=== PATIENT | female | born 1950 | race Caucasian/White ===

== ENCOUNTER 2019-01-26 09:23 | Day surgery (SDC) ==
[2019-01-20 09:47] LABS: URINE SOURCE CLEAN CATCH
[2019-01-20 09:55] LABS: BASO# 0.01 X1000 (0.0-0.2); BASO% 0.2 % (0.0-0.8); EOS# 0.19 X1000 (0.0-0.7); EOS% 3.1 % (0.0-10.0); HEMATOCRIT 40.3 % (37.0-47.0); HEMOGLOBIN 12.8 g/dL (12.0-16.0); LYMPH# 2.14 X1000 (1.2-3.4); LYMPH% 34.7 % (20.5-51.1); MCH 29.6 PG (27-31); MCHC 31.8 g/dL (33-37); MCV 93.1 FL (81-99); MONO# 0.25 X1000 (0.11-0.59); MONO% 4.1 % (1.7-9.3); MPV 9.5 FL (7.4-10.4); NEUT# 3.57 X1000 (1.4-6.5); NEUT% 57.9 % (42.2-75.2); PLT 240 X1000 (130-400); RBC 4.33 XMIL (4.2-5.4); RDW 14.4 % (11.5-14.5); WBC 6.16 X1000 (4.8-10.8)
[2019-01-20 09:56] LABS: BILIRUBIN URINE NEGATIVE (NEGATIVE); BLOOD URINE TRACE (NEGATIVE); COLOR YELLOW; GLUCOSE URINE NEGATIVE (NEGATIVE); KETONE URINE NEGATIVE (NEGATIVE); LEUKOCYTES URINE NEGATIVE (NEGATIVE); NITRITE URINE NEGATIVE (NEGATIVE); PH URINE 6.5; PROTEIN URINE NEGATIVE (NEGATIVE); SP GRAVITY URINE 1.022; TURBIDITY URINE CLEAR (CLEAR); UR EPITHELIAL CELLS <10 /HPF (<10); URINE BACTERIA NEGATIVE /HPF; URINE RBC <10 /HPF (<10); URINE WBC <10 /HPF (<10); UROBILINOGEN URINE NORMAL (NORMAL)
[2019-01-20 10:04] LABS: HEMOGLOBIN A1C 5.4 % (4.8-6.0)
[2019-01-20 10:17] LABS: INR 1.37; PROTIME 17.1 Seconds (11.0-16.0)
[2019-01-20 10:18] LABS: PTT 35.5 Seconds (22.3-41.8)
[2019-01-20 10:19] LABS: AGAP 10; BUN 19 mg/dL (8-22); CALCIUM 8.9 mg/dL (8.8-10.2); CHLORIDE 108 mmol/L (98-107); COSMO 292; CREATININE 0.6 mg/dL (0.5-0.9); ESTIMATED GFR > 60; GLUCOSE 87 mg/dL (70-104); POTASSIUM 4.6 mmol/L (3.5-5.1); SODIUM 146 mmol/L (136-145); TCO2 28 mmol/L (25-35)
[2019-01-26] MEDS ORDERED: REGLAN ONE (09:48)
[2019-01-26] MEDS ORDERED: PEPCID ONE (09:48)
[2019-01-26] MEDS ORDERED: COLACE ONE (09:48)
[2019-01-26] MEDS ORDERED: LYRICA ONE (09:49)
[2019-01-26] MEDS ORDERED: LR 1,000 ML ONE (09:49)
[2019-01-26] MEDS ORDERED: CELEBREX ONE (09:49)
[2019-01-26] MEDS ORDERED: KEFZOL 1 GM/D5W 1 GM/50 ML IVPB ONE (09:49)
[2019-01-26] MEDS ORDERED: VERSED ONE (09:51)
[2019-01-26] MEDS ORDERED: DIPRIVAN 1% ONE ×3 (09:52→12:59)
[2019-01-26] MEDS ORDERED: FENTANYL ONE (09:52)
[2019-01-26] MEDS ORDERED: DURAMORPH ONE (11:01)
[2019-01-26] MEDS ORDERED: TORADOL ONE (11:01)
[2019-01-26] MEDS ORDERED: MARCAINE 0.25% PF ONE (11:01)
[2019-01-26] MEDS ORDERED: VANCOMYCIN ONE (11:01)
[2019-01-26] MEDS ORDERED: SODIUM CHLORIDE 0.9% ONE (11:02)
[2019-01-26] MEDS ORDERED: EXPAREL 1.3% ONE (11:02)
[2019-01-26] MEDS: CYKLOKAPRON 1,000 MG/NS 2,000 MG/200 ML IVPB ONE ×2 (11:55→12:54)
[2019-01-26] MEDS ORDERED: DECADRON ONE (12:14)
[2019-01-26] MEDS ORDERED: ZOFRAN ONE (12:14)
[2019-01-26] MEDS ORDERED: OFIRMEV 1000 MG/ISOTONIC SOLN 1,000 MG/100 ML BOTTLE ONE (12:14)
[2019-01-26 12:42] LABS: URINE SOURCE CATH
[2019-01-26 12:44] LABS: BILIRUBIN URINE NEGATIVE (NEGATIVE); BLOOD URINE NEGATIVE (NEGATIVE); COLOR YELLOW; GLUCOSE URINE NEGATIVE (NEGATIVE); KETONE URINE NEGATIVE (NEGATIVE); LEUKOCYTES URINE NEGATIVE (NEGATIVE); NITRITE URINE NEGATIVE (NEGATIVE); PROTEIN URINE NEGATIVE (NEGATIVE); SP GRAVITY URINE 1.016; TURBIDITY URINE CLEAR (CLEAR); UR EPITHELIAL CELLS <10 /HPF (<10); URINE BACTERIA NEGATIVE /HPF; URINE RBC <10 /HPF (<10); URINE WBC <10 /HPF (<10); UROBILINOGEN URINE NORMAL (NORMAL)
--- NOTE | 2019-01-26 13:15 | OPERATIVE NOTE ---
PROCEDURE DATE: 01/26/2019 PREOPERATIVE DIAGNOSIS: Degenerative joint disease, left knee. POSTOPERATIVE DIAGNOSIS: Degenerative joint disease, left knee. PROCEDURE PERFORMED: Left total knee replacement. SURGEON: Faisal Nguyen M.D. SEAMAN OFFICER: Vazquez Chow. Mr. Chow was necessary for proper retraction and manipulation during the case. ANESTHESIA: Spinal. COMPLICATIONS: None. PROCEDURE IN DETAIL: A 68-year-old female presents for a left knee replacement. Risks, benefits, and no guarantees were discussed, and she is willing to proceed. She was taken to the operating room, and satisfactory anesthesia obtained. The left knee was prepped and draped in the usual sterile fashion. A time-out was taken to confirm operative site, procedure, and patient. The leg was wrapped with an Esmarch, and tourniquet inflated to 300 mmHg. A midline incision was made, followed by a quad tendon-sparing arthrotomy. The patella was everted and resurfaced with freehand technique. With the patella subluxed laterally, the knee was flexed, and an intramedullary hole made in the distal femur. The distal femoral cutting block was secured in 5 degrees of valgus. Distal femoral resection was made, and the femur sized to a size 5 DePuy Attune implant. The 4-in-1 block was secured, and the anterior, posterior, and chamfer cuts sequentially made. Care was taken to preserve the PCL and collateral ligaments. Any osteophytes were debrided off the femur. With the knee flexed, a PCL retractor was placed behind the tibia to protect the PCL and neurovascular bundle. The tibial cutting block was secured, and the tibial resection made. The tibia was then sized to a size 4 tibial tray. A trial reduction was performed with a size 4 tibial tray, a size 5 cruciate-retaining femoral implant, and a 7 mm thick trial poly with good range of motion and stability. The patella was then sized to a 35 medialized dome patella. The drill holes were placed for the patellar implant and the femoral component. The trial components were removed, and all bony surfaces were thoroughly irrigated with pulsatile lavage. Cement with a gram of vancomycin was then utilized to cement a DePuy Attune size 4 rotating platform tibial base plate, a size 5 narrow cruciate retaining femoral component for a left knee, and a 35 medialized dome patella. While the cement cured, excess cement was removed with a [place] elevator. The joint capsule was injected with Exparel for pain management. A Hemovac drain was placed. After curing the cement, a 7 mm thick cruciate-retaining size 5 polyethylene bearing was secured into the tibial tray, and the knee reduced. Final range of motion was 0 to 130 degrees with midline patellar tracking. The joint was irrigated with irrigant, and closed over the drain with #1 Vicryl in the arthrotomy, 2-0 Vicryl in the subcu, and skin felix on the skin edges. Sterile dressings completed the closure, and the patient was recovered from anesthesia, and transferred to the recovery room in stable condition. No intraoperative complications were noted. Instrument count and sponge count were correct at the time of closure. cc: Kimo Nguyen MD
[2019-01-26] MEDS ORDERED: NS 1,000 ML ONE (14:02)
--- NOTE | 2019-01-26 14:07 | Diag Imaging Result Doc PS360 ---
KNEE 1-2 VIEWS-LEFT - 01/26/2019 INDICATION: post op TECHNIQUE: Two views COMPARISON: None FINDINGS: There has been left total knee arthroplasty. No hardware fracture or loosening. Alignment is anatomic. IMPRESSION: No complication. Electronically signed by William Jiménez 01/26/2019 2:04 PM
[2019-01-26] MEDS ORDERED: ZOFRAN ODT PO PRN (15:00)
[2019-01-26] MEDS ORDERED: ZOFRAN IV PRN (15:00)
[2019-01-26] MEDS ORDERED: MORPHINE IV PRN ×3 (15:00)
[2019-01-26] MEDS ORDERED: OXY IR PO PRN (15:00)
[2019-01-26] MEDS: OXY IR PO PRN (16:17)
[2019-01-26] MEDS: ULTRAM PO SCH ×2 (16:17→22:06)
[2019-01-26] MEDS: NS 1,000 ML IV SCH (16:18)
--- NOTE | 2019-01-26 18:29 | ORTHOPAEDICS PROGRESS NOTE ---
DATE: 01/26/2019 SUBJECTIVE DATA: Ms. Bravo is seen postop day 0 for left total knee arthroplasty. She states she is doing well at this time. She reports that she has been up walking with physical therapy. She denies nausea or vomiting at this time. She states she has a small amount of pain. OBJECTIVE DATA: There is good sensation of lower extremity. There is good pedal pulses. There is negative Homans sign. Bandages are clean and dry. Vital signs have been stable. ASSESSMENT: Degenerative joint disease left knee with left total knee arthroplasty. PLAN: We will plan on checking on Ms. Bravo in the morning. If she is doing well, we may consider discharge at that time. Dictated by TAYLOR Lamb for Kimo Nguyen MD cc: TAYLOR Lamb MD
[2019-01-26] MEDS: KEFZOL 1 GM/D5W 1 GM/50 ML IVPB IV SCH (19:55)
[2019-01-26] MEDS ORDERED: AMBIEN PO SCH (22:03)
[2019-01-26] MEDS: COLACE PO SCH (22:07)
[2019-01-26] MEDS: TYLENOL PO SCH (22:07)
[2019-01-26] MEDS: CELEBREX PO SCH (22:08)
[2019-01-26] MEDS: PERIDEX MT SCH (22:08)
[2019-01-27] MEDS: NS 1,000 ML IV SCH (03:20)
[2019-01-27] MEDS: ULTRAM PO SCH ×2 (03:20→13:02)
[2019-01-27] MEDS: TYLENOL PO SCH ×2 (03:21→13:03)
[2019-01-27] MEDS: KEFZOL 1 GM/D5W 1 GM/50 ML IVPB IV SCH (03:30)
[2019-01-27 06:06] LABS: HEMATOCRIT 34.4 % (37.0-47.0)
[2019-01-27 06:38] LABS: AGAP 12; BUN 9 mg/dL (8-22); CALCIUM 7.8 mg/dL (8.8-10.2); CHLORIDE 106 mmol/L (98-107); COSMO 285; CREATININE 0.5 mg/dL (0.5-0.9); ESTIMATED GFR > 60; GLUCOSE 163 mg/dL (70-104); POTASSIUM 4.8 mmol/L (3.5-5.1); SODIUM 142 mmol/L (136-145); TCO2 24 mmol/L (25-35)
[2019-01-27] MEDS ORDERED: XARELTO PO SCH (09:00)
[2019-01-27] MEDS ORDERED: CARDIZEM CD PO SCH (09:00)
[2019-01-27] MEDS ORDERED: VITAMIN D PO SCH (09:00)
[2019-01-27] MEDS ORDERED: PEPCID PO SCH (09:00)
[2019-01-27] MEDS ORDERED: EVISTA PO SCH (09:00)
[2019-01-27] MEDS ORDERED: LOPRESSOR PO SCH (09:00)
[2019-01-27] MEDS ORDERED: LEXAPRO PO SCH (09:00)
[2019-01-27] MEDS ORDERED: LIPITOR PO SCH (09:00)
[2019-01-27] MEDS: OXY IR PO PRN (10:04)
[2019-01-27 11:27] VITALS: BP 127/64
[2019-01-27] MEDS: PERIDEX MT SCH (12:57)
[2019-01-27] MEDS: CELEBREX PO SCH (12:58)
[2019-01-27] MEDS: COLACE PO SCH (12:58)
--- NOTE | 2019-01-27 13:15 | ORTHOPAEDICS PROGRESS NOTE ---
DATE: 01/27/2019 SUBJECTIVE DATA: Ms. Bravo is seen postop day 1 of her left total knee arthroplasty. She reports her pain is 2/10 at this time. She reports she has been walking with physical therapy without difficulty. She states she does take Xarelto 20 mg daily at home and that she can continue her home medication for deep vein thrombosis prophylaxis. OBJECTIVE DATA: The bandages are clean and dry. There is no active drainage. There is negative Homans sign. There is good sensation to the left lower extremity. There is good pedal pulses. There is good capillary refill in the lower extremities. ASSESSMENT: Degenerative joint disease of the left knee with left total knee arthroplasty. PLAN: We plan on sending Ms. Bravo home today. She can continue her Xarelto as directed. I placed her on Bactrim DS b.i.d. for 10 days for infection prevention. I have written her prescription for physical therapy. She would like to attend outpatient therapy right away. I have also given her [place] 10 for pain. She is to follow up in office in roughly 10 days for a checkup. We will go and get her discharged after she walks with therapy. She is to call with any questions or concerns. Dictated by TAYLOR Lamb for Kimo Nguyen MD cc: TAYLOR Lamb MD
== END 2019-01-27 13:16 | disposition home or self-care (01) ==
LOC: OPS 09:23 → PAT 09:23 → 4N 09:23 → OPS 01-27 13:16
PROVIDERS: ATTEND Orthopaedic Surgery Adult Reconstructive Orthopaedic Surgery